=== PATIENT | male | born 1990 | race African-American/Black ===

== ENCOUNTER 2017-01-18 12:46 | Emergency (ER) | payer SELFPAY ==
[~2017-01-18] VITALS: Ht 175.3 cm; Wt 81.0 kg
[2017-01-18] MEDS ORDERED: ONDANSETRON 4MG ODT PO ONE (16:45)
[2017-01-18] MEDS ORDERED: IBUPROFEN 600MG TABLET PO ONE (16:45)
[2017-01-18 16:57] LABS: BASOPHILS % 0.6 % (0.0-2.0); EOSINOPHILS % 4.9 % (0.0-5.0); HEMATOCRIT. 43.5 % (42.0-52.0); HEMOGLOBIN. 14.9 g/dL (14.0-18.0); LYMPHOCYTES % 52.7 % (20.0-50.0); MEAN CORPUSCULAR HEMOGLOBIN 32.3 pg (28.0-32.0); MEAN CORPUSCULAR VOLUME 94.4 fL (80.0-94.0); MEAN PLATELET VOLUME 8.1 fl (7.4-10.4); NEUTROPHILS % 27.8 % (40.0-76.0); PLATELET 185 x1000/uL (130-400); RED BLOOD CELL COUNT 4.61 mill/uL (4.7-6.1); RED CELL DISTRIBUTION WIDTH 12.3 % (11.6-14.6)
[2017-01-18 17:02] LABS: CHLORIDE 102 mEq/L (98-107)
[2017-01-18 17:08] LABS: CARBON DIOXIDE 30 mEq/L (21-32)
[2017-01-18 17:45] VITALS: BP 128/64
== END 2017-01-18 17:46 | disposition home or self-care (01) ==
LOC: ER 12:46
DX: K59.00 Constipation, unspecified (principal); R11.0 Nausea; D72.819 Decreased white blood cell count, unspecified
CPT/HCPCS: 36415; 74000; 80048; 83690; 85025; 99285; Q0162

== ENCOUNTER 2019-05-22 19:34 | Emergency (ER) | payer MEDICAID ==
[~2019-05-22] VITALS: Ht 172.7 cm; Wt 80.0 kg
[2019-05-22 19:54] VITALS: BP 121/66
[2019-05-22] MEDS ORDERED: KETOROLAC 30MG/ML VIAL IM ONE (20:30)
== END 2019-05-22 21:18 | disposition home or self-care (01) ==
LOC: ER 19:34
DX: M54.2 Cervicalgia (principal); F17.200 Nicotine dependence, unspecified, uncomplicated; Y08.89XA Assault by other specified means, initial encounter; Y93.89 Activity, other specified; Y92.89 Other specified places as the place of occurrence of the external cause; Y99.8 Other external cause status
CPT/HCPCS: 96372; 99283; J1885; Z7610

== ENCOUNTER 2019-07-13 12:31 | Emergency (ER) | payer BC, MEDICAID ==
[~2019-07-13] VITALS: Ht 175.3 cm; Wt 82.0 kg
[2019-07-13 17:56] LABS: CLARITY URINE CLEAR (CLEAR); COLOR URINE YELLOW (YELLOW); KETONES URINE TRACE (NEGATIVE); LEUKOCYTE ESTERASE URINE NEGATIVE (NEGATIVE); NITRITE URINE NEGATIVE (NEGATIVE); OCCULT BLOOD URINE NEGATIVE (NEGATIVE); PROTEIN URINE NEGATIVE (NEGATIVE)
[2019-07-13] MEDS ORDERED: AZITHROMYCIN 500 MG TABLET PO STA (18:04)
[2019-07-13] MEDS ORDERED: CEFTRIAXONE SODIUM 250 MG/VIAL IM STA (18:04)
[2019-07-13 18:48] VITALS: BP 100/58
== END 2019-07-13 18:49 | disposition home or self-care (01) ==
LOC: ER 12:31
DX: N34.2 Other urethritis (principal)
CPT/HCPCS: 81003; 96372; 99283; J0696